=== PATIENT | male | born 1960 | race Two or more races ===

== ENCOUNTER → 2017-11-29 | Outpatient (REF) | payer OTHER, SELFPAY | LOC: M LAB REF 09:31 | DX: J02.9 Acute pharyngitis, unspecified (principal) | CPT/HCPCS: 87430 ==

== ENCOUNTER → 2025-01-21 | Outpatient (REF) | payer OTHER | LOC: M SMT 12:45 | PROVIDERS: ATTEND Urology | DX: R97.20 Elevated prostate specific antigen [PSA] (principal) ==

== ENCOUNTER → 2025-01-27 | Outpatient (REF) | payer OTHER ==
[2025-01-27 17:48] LABS: APPEARANCE, URINE HAZY (CLEAR); BACTERIA, URINE AUTO NEGATIVE (NEGATIVE); BILIRUBIN, URINE AUTO NEGATIVE (NEGATIVE); BLOOD, URINE BLOOD 3+ (NEGATIVE); GLUCOSE, URINE (UA) AUTO NEGATIVE (NEGATIVE); KETONE, URINE AUTO NEGATIVE (NEGATIVE); LEUKOCYTE ESTERASE, URINE AUTO 2+ (NEGATIVE); MUCUS, URINE SMALL (NEGATIVE); NITRITE, URINE AUTO NEGATIVE (NEGATIVE); PROTEIN, URINE AUTO 1+ mg/dL (NEGATIVE); RBC, URINE AUTO 5 /HPF (0-3); SPECIFIC GRAVITY URINE AUTO 1.025 (1.002-1.035); SQUAMOUS EPITHELIAL CELL UR AU 0 /HPF (0-6); UROBILINOGEN, URINE AUTO 2.0 mg/dL (0.0-2.0); WBC, URINE AUTO 19 /HPF (0-3)
== END ==
LOC: M SMT 17:06
PROVIDERS: ATTEND Urology
DX: N39.0 Urinary tract infection, site not specified (principal)